=== PATIENT | male | born 1990 | race Caucasian/White ===

== ENCOUNTER 2017-10-28 04:50 | Emergency (ER) | payer BC ==
[~2017-10-28] VITALS: Ht 165.1 cm; Wt 65.8 kg
[2017-10-28 05:28] LABS: CHLORIDE 105 mEq/L (99-109); POTASSIUM 4.1 mEq/L (3.7-5.4); SODIUM 139 mEq/L (136-147)
[2017-10-28 05:30] LABS: GLUCOSE 93 mg/dL (70-99)
[2017-10-28 05:34] LABS: CREATININE 0.8 mg/dL (0.6-1.3); GFR ESTIMATE (CALCULATED) > 59 mL/min/ (58.99-99999)
[2017-10-28 05:35] LABS: UREA NITROGEN (BUN) 9 mg/dL (9-23)
[2017-10-28 05:41] LABS: TROP-I INTERPRETATION NEGATIVE; TROPONIN-I < 0.01 ng/mL (0.0-0.30)
[2017-10-28 05:43] LABS: HEMATOCRIT 44.6 % (38.0-50.0); HEMOGLOBIN 15.5 G/DL (12.5-16.6); MCH 30.5 PG (29.0-34.0); MCHC 34.8 G/DL (30.0-36.0); MCV 87.8 FL (86-99); PLATELET COUNT 268 K/uL (156-360); RBC DIS.WIDTH-CV 11.3 % (11.8-14.6); RBC DIS.WIDTH-SD 36.3 % (39-53); RED BLOOD COUNT 5.08 M/uL (4.00-5.50); WHITE BLOOD COUNT 6.4 K/uL (4.1-10.2)
[2017-10-28] MEDS ORDERED: NAPROSYN500 MG PO (08:55)
[2017-10-28 09:03] VITALS: BP 119/68
== END 2017-10-28 09:22 | disposition home or self-care (01) ==
LOC: EME 04:50
PROVIDERS: Emergency Medicine
DX: R07.9 Chest pain, unspecified (principal)
CPT/HCPCS: 71046; 80048; 84484; 85027; 85379; 93005; 99281; 99284

== ENCOUNTER 2017-11-28 21:16 | Emergency (ER) | payer BC ==
[~2017-11-28] VITALS: Ht 165.1 cm; Wt 64.7 kg
[~2017-11-28 21:16] MED LIST: NAPROSYN500 MG PO
[2017-11-28 22:03] LABS: HEMATOCRIT 45.1 % (38.0-50.0); HEMOGLOBIN 15.2 G/DL (12.5-16.6); MCH 30.5 PG (29.0-34.0); MCHC 33.7 G/DL (30.0-36.0); MCV 90.6 FL (86-99); PLATELET COUNT 334 K/uL (156-360); RBC DIS.WIDTH-CV 11.9 % (11.8-14.6); RBC DIS.WIDTH-SD 39.3 % (39-53); RED BLOOD COUNT 4.98 M/uL (4.00-5.50); WHITE BLOOD COUNT 10.6 K/uL (4.1-10.2)
[2017-11-28 22:35] LABS: ALBUMIN 4.1 g/dL (3.2-4.8); CHLORIDE 105 mEq/L (99-109); POTASSIUM 3.8 mEq/L (3.7-5.4); SODIUM 142 mEq/L (136-147)
[2017-11-28 22:38] LABS: GLUCOSE 105 mg/dL (70-99); TOTAL PROTEIN 6.9 g/dL (6.4-8.3)
[2017-11-28 22:40] LABS: TOTAL BILIRUBIN 0.5 mg/dL (0.0-1.0)
[2017-11-28 22:41] LABS: ALKALINE PHOSPHATASE 197 IU/L (3-129); CREATININE 0.8 mg/dL (0.6-1.3); GFR ESTIMATE (CALCULATED) > 59 mL/min/ (58.99-99999)
[2017-11-28 22:42] LABS: UREA NITROGEN (BUN) 10 mg/dL (9-23)
[2017-11-28 22:43] LABS: AST (GOT) 141 IU/L (2-34)
[2017-11-28 22:44] LABS: ALT (GPT) 216 IU/L (3-49)
[2017-11-28 22:56] LABS: APPEARANCE CLEAR ((CLEAR)); BILIRUBIN NEGATIVE; BLOOD NEGATIVE; COLOR YELLOW ((YELLOW)); GLUCOSE (STRIP) NEGATIVE; KETONES NEGATIVE; LEUKOCYTES TRACE; NITRITE NEGATIVE; PROTEIN (STRIP) NEGATIVE; SPECIFIC GRAVITY 1.025 (1.000-1.030)
[2017-11-28 23:06] LABS: BACTERIA RARE /HPF; EPITHELIAL CELLS NONE SEEN /HPF; HYALINE CASTS 0-5 /LPF; MUCUS 1+ /LPF; RED BLOOD CELLS 0-5 /HPF (0-5); UCUL ADDED? YES; WHITE BLOOD CELLS 30-40 /HPF (0-5)
[2017-11-29 01:38] LABS: LIPASE 26 U/L (1.0-51.0)
[2017-11-29] MEDS ORDERED: ULTRAM50 MG PO (02:06)
[2017-11-29] MEDS ORDERED: LEVAQUIN750 MG PO (02:06)
[2017-11-29 02:25] VITALS: BP 104/59
== END 2017-11-29 02:27 | disposition home or self-care (01) ==
LOC: EME 21:16
PROVIDERS: Emergency Medicine
DX: I88.0 Nonspecific mesenteric lymphadenitis (principal); N39.0 Urinary tract infection, site not specified
CPT/HCPCS: 71046; 74176; 80053; 81003; 83690; 85027; 87086; 87502; 99281; 99285; J7030